=== PATIENT | female | born 1945 | race Caucasian/White ===

== ENCOUNTER 2017-11-25 10:13 | Outpatient (CLI) | payer MEDICARE, OTHER ==
[~2017-11-25] VITALS: Ht 160 cm; Wt 92.3 kg
--- NOTE | ~2017-11-25 | HEMODYNAMI ---
PATIENT:CHINO BURKETT MEDICAL RECORD: [id number] : 49 LOCATION:[facility] ADMISSION DATE: 11/25/17 Generatedon:11/25/201715:05 Patient name: CHINO BURKETT Patient #: [id number] SSN: DO B: 1945 Date of study: 11/25/2017 Page: Of Hemodynamic Procedure Report Patient Data Patient Demographics Procedure consent was obtained First Name: CHINO Gender: Female Last Name: MADELAINE : 1945 [facility] Initial: MARC Age: 72 year(s) Patient #: [id number] Race: Additional ID: [id number] Contact details [address]: [address] [place] [address] State: [place] City: [place] Zip code: [address] Past Medical History Allergies Allergen Reaction Date Comments Reported Sulfa drugs 11/25/2017 Statins 11/25/2017 Codeine 11/25/2017 Codeine 11/25/2017 Statins 11/25/2017 Sulfa drugs 11/25/2017 Codeine 11/25/2017 Admission Admission Data Admission Date: 11/25/2017 Admission Time: 10:13 Lab Results Lab Result Date: 11/25/2017 Lab Result Time: 0:00 Biochemistry Name Units Result Min Max BUN mg/dl 10 --(-*--)-- 7 18 Creatinine mg/dl 0.8 --(-*--)-- 0.6 1.3 Procedure Procedure Types Cath Procedure Diagnostic Procedure LHC LHC w/Coronaries Procedure Description Procedure Date Procedure Date: 11/25/2017 Procedure Start Time: 14:48 Procedure End Time: 15:05 Procedure Staff Name Function Cortez Chilel MD Performing Physician Jerardo Kincaid RT Monitor Boris Raza RN Nurse Nusrat Turner RT Scrub Procedure Data Cath Procedure Fluoroscopy Diagnostic fluoroscopy Total fluoroscopy Time: 2 time: 2 min min Diagnostic fluoroscopy Total fluoroscopy dose: 586 dose: 586 mGy mGy Contrast Material Contrast Material Type Amount (ml) Isovue 300 62 Entry Location Entry Primary Successful Side Size Upsize Upsize Entry Closure Monique ccessful Closure Location (Fr) 1 (Fr) 2 (Fr) Remarks Device Remarks Radial Right 6 Fr Mechanical artery Short Compression Estimated blood loss: 10 ml Diagnostic catheters Device Type Used For End Catheter Placement DIAGNOSTIC [place] 110cm 5 Procedure Fr catheter ([id number]) Procedure Medications Medication Administration Route Dosage Oxygen etCO2 Nasal cannula 2 l/min Heparin Flush Bag added to field 2 bags (1000units/500ml NS) 0.9% NaCl I.V. 100 ml/hr Radial Cocktail added to field 1 syringe (Verapomil 2mg/Nitro 400mcg/Heparin 1500units) Fentanyl I.V. 50 mcg Versed I.V. 1 mg Fentanyl I.V. 50 mcg Versed I.V. 1 mg Radial Cocktail I.A. 1 syringe (Verapomil 2mg/Nitro 400mcg/Heparin 1500units) Hemodynamics Rest Heart Rate: 76 (bpm) Pressure Samples Time Site Value (mmHg) Purpose Heart Use Rate(bpm) 14:50 LV 157/-2,10 Snapshot 82 14:51 AO 152/68(108) Pullback 80 14:51 LV 148/2,8 Pullback 80 Gradients Valve Time Site 1 Site 2 Mean SEP/DFP Peak To Heart Use (mmHg) (sec/min) Peak Rate (mmHg) (bpm) Aortic 14:51 LV AO 0 8 0 80 148/2,8 152/68(108) Calculations Valve P-P Mean Valve Index Valve Source Name Gradient Area Flow (cm2) Aortic 0 0 0 0 Snapshots Pre Cath Intra NCS Post Cath Vital Signs Time Heart Resp SPO2 etCO2 NIBP (mmHg) Rhythm Pain Sedation Rate (ipm) (%) (mmHg) Status Level (bpm) 14:36:12 76 16 100 32.2 166/83(126) NSR 0 (11) 10(A) , No pain 14:41:09 66 16 99 31.4 155/69(110) NSR 0 (11) 10(A) , No pain 14:46:04 68 15 95 0 143/80(116) NSR 0 (11) 10(A) , No pain 14:50:55 120 16 98 0 140/72(106) NSR 0 (11) 9(A) , No pain 14:55:46 88 16 98 29.9 144/73(106) NSR 0 (11) 9(A) , No pain 15:00:37 86 17 98 36.7 155/69(117) NSR 0 (11) 9(A) , No pain 15:04:18 83 16 95 37.4 163/81(119) NSR 0 (11) 9(A) , No pain Medications Time Medication Route Dose Verified Delivered Reason Notes Effectiveness by by 14:41:27 Oxygen etCO2 2 l/min Cortez Boris Per Nasal Getachew Raza RN physician cannula 14:41:37 Heparin Flush added 2 bags Cortez Boris used for Bag to Getachew Raza RN procedure (1000units/500ml field NS) 14:41:47 0.9% NaCl I.V. 100 Cortez Boris Per ml/hr Getachew Raza RN physician 14:42:05 Radial Cocktail added 1 Cortez Boris used for (Verapomil to syringe Getachew Raza RN procedure 2mg/Nitro field 400mcg/Heparin 1500units) 14:45:56 Fentanyl I.V. 50 mcg Cortez Boris for sedation Getachew Raza RN 14:46:03 Versed I.V. 1 mg Cortez Boris for sedation Getachew Raza RN 14:50:06 Radial Cocktail I.A. 1 Cortez Boris for (Verapomil syringe Getachew Raza RN vasodilation 2mg/Nitro 400mcg/Heparin 1500units) 14:50:46 Fentanyl I.V. 50 mcg Cortez Boris for sedation Getachew Raza RN 14:50:49 Versed I.V. 1 mg Cortez Boris for sedation Getachew Raza RN Procedure Log Time Note 14:22:23 Informed consent obtained and on chart 14:22:26 Diagnostic Cath Status : Elective 14:28:05 Time tracking: Regular hours (M-F 7:00 - 5:00) 14:28:13 Plan of Care:Hemodynamics will remain stable., Cardiac rhythm will remain stable., Comfort level will be maintained., Respiratory function will remain adequate., Patient/ family verbilizes understanding of procedure., Procedure tolerated without complication., Recovers from procedure without complications.. 14:28:21 Patient received from Pre/Post Procedure Room to [facility] 1 Alert and oriented. Tansferred to table in Supine position. 14:28:23 Warm blankets applied, and sabine hugger turned on for patient comfort. 14:28:24 Correct patient and procedure confirmed by team. 14:35:04 Vital chart was started 14:40:30 Baseline sample Acquired. 14:40:37 Rhythm: sinus rhythm 14:40:39 Full Disclosure recording started 14:40:51 H&P Date Dictated: 11/13/2017 Within 30 days and on chart., H&P Addendum completed by physician on day of procedure. (MUST COMPLETE FOR ALL OUTPATIENTS). 14:40:53 Pre-procedure instructions explained to patient. 14:40:53 Pre-op teaching completed and patient verbalized understanding. 14:40:59 Family in patients room. 14:41:01 Patient NPO since Breakfast. 14:41:18 Patient allergic to Sulfa drugs 14:41:26 Patient allergic to Statins 14:41:27 Oxygen 2 l/min etCO2 Nasal cannula was administered by Boris Raza RN; Per physician; 14:41:32 Patient allergic to Codeine 14:41:37 Heparin Flush Bag (1000units/500ml NS) 2 bags added to field was administered by Boris Raza RN; used for procedure; 14:41:47 0.9% NaCl 100 ml/hr I.V. was administered by Boris Raza RN; Per physician; 14:42:02 Patient allergic to Codeine 14:42:05 Radial Cocktail (Verapomil 2mg/Nitro 400mcg/Heparin 1500units) 1 syringe added to field was administered by Boris Raza RN; used for procedure; 14:42:12 Patient allergic to Statins 14:42:19 Patient allergic to Sulfa drugs 14:42:33 Patient allergic to Codeine 14:42:40 Is the patient allergic to Iodine/contrast media? No. 14:42:48 Is patient on blood thinner?Yes 14:42:52 ACC The patient was administered the following blood thiners within the last 24 hours: ACCPlavix 14:42:55 Patient diabetic? Yes. 14:42:56 If diabetic: On Metformin? No 14:43:01 Patient not . Patient is over age 55. 14:43:02 ----Pre-sedation anethsthesia assessment.---- 14:43:05 Previous problem with sedation/anesthesia? No ? 14:43:07 Snore? No 14:43:09 Sleep apnea? No 14:43:21 Deviated septum? No 14:43:22 Opens mouth fully? Yes 14:43:23 Sticks out tongue? Yes 14:43:26 Airway obstruction? No ? 14:43:29 Dentures? No ? 14:43:38 Patient pain scale 0/10 ?. 14:43:51 IV patent on arrival in left wrist with 0.9% NaCl at [facility]. 14:45:19 Lab Result : Creatinine 0.8 mg/dl 14:45:19 Lab Result : BUN 10 mg/dl 14:45:24 Lab results completed and on chart. 14:45:31 Right Radial & Right Groin area was prepped with chlora-prep and draped in sterile fashion 14:45:33 Alarms reviewed by R. N. 14:45:34 Sharps counted by scrub and verified by R.N. 14:45:35 Physician arrived 14:45:36 --------ALL STOP TIME OUT------ 14:45:38 Final Timeout: patient, procedure, and site verified with staff and physician. All members of the team are in agreement. 14:45:41 Right Radial & Right Groin site verified by team. 14:45:48 Physical assessment completed. ASA score P 2 - A patient with mild systemic disease as per Cortez Chilel MD. 14:45:55 Sedation plan: IV Moderate Sedation Medication:Versed, Fentanyl 14:45:56 Fentanyl 50 mcg I.V. was administered by Boris Raza RN; for sedation; 14:46:03 Versed 1 mg I.V. was administered by Boris Raza RN; for sedation; 14:47:43 Use device set Radial Dx or PCI 14:47:44 ACIST Syringe (28069) opened to sterile field. 14:47:45 Medline Cath Pack ([id number]) opened to sterile field. 14:47:46 Bag Decanter (2002S) opened to sterile field. 14:47:47 DIAGNOSTIC WIRE .035 260cm J wire (767492) opened to sterile field. 14:47:48 ACIST Hand Control (26122) opened to sterile field. 14:47:48 ACIST Manifold (05419) opened to sterile field. 14:47:49 Tegaderm 4 x 4 (1626W) opened to sterile field. 14:47:50 MBrace Wrist Support ([id number]) opened to sterile field. 14:47:55 SHEATH 6Fr Prelude Radial ([id number]) opened to sterile field. 14:48:02 Procedure started. 14:48:19 Local anesthetic to right radial artery with Lidocaine 2% by Cortez Chilel MD.INITIAL ACCESS ONLY 14:49:06 A 6 Fr Short sheath was inserted into the Right Radial artery 14:49:43 A DIAGNOSTIC [place] 110cm 5 Fr catheter (146865) was advanced over the wire and used for Procedure. 14:50:06 Radial Cocktail (Verapomil 2mg/Nitro 400mcg/Heparin 1500units) 1 syringe I.A. was administered by Boris Raza RN; for vasodilation; 14:50:44 LV hemodynamics recorded. 14:50:46 Fentanyl 50 mcg I.V. was administered by Boris Raza RN; for sedation; 14:50:47 LV gram done using RECIO 14:50:49 Versed 1 mg I.V. was administered by Boris Raza RN; for sedation; 14:50:57 EF : 55 % 14:51:56 LCA angiography performed. 14:54:23 RCA angiography performed. 14:57:59 Catheter removed. 14:58:35 CABG CONSULT 14:59:17 TR BAND Standard ([id number]) opened to sterile field. 14:59:51 Sheath removed intact; hemostasis achieved with Mechanical Compression to the Right Radial artery. 15:00:35 Procedure ended.(Physican Out) 15:00:52 Fluoroscopy time 02.00 minutes. 15:01:00 Fluoroscopy dose: 586 mGy 15:01:00 Flurop Dose total: 586 15:01:05 Contrast amount:Isovue 300 62ml. 15:01:07 Sharps counted by scrub and verified by R.N. 15:01:39 TR band inflated with 13cc of air. 15:01:41 Insertion/operative site no bleeding no hematoma. 15:01:51 Post right radial artery:stable 15:02:21 Post-procedure physical assessment completed. ASA score P 2 - A patient with mild systemic disease as per Cortez Chilel MD. 15:02:32 Post procedure rhythm: sinus rhythm 15:02:40 Estimated blood loss: 10 ml 15:02:48 Post procedure instruction explained to patient.Patient verbalizes understanding. 15:02:50 Patient needs reinforcement of post procedure teaching. 15:02:52 Procedure and supply charges have been captured, reviewed, submitted and are correct. 15:05:19 Vital chart was stopped 15:05:20 See physician's report for complete and final results. 15:05:22 Report given to Pre/Post Procedure Room. 15:05:25 Patient transfered to Pre/Post Procedure Room with Stretcher. 15:05:28 Procedure ended. 15:05:28 Full Disclosure recording stopped 15:05:32 End room use (Document Last) Device Usage Item Name Manufacture Quantity Catalog Number Hospital Part Current M inimal Lot# / Charge Number Stock Stock Serial# Code ACIST Syringe Acist 1 99038 [id number] 368932 650028 2 0 (10102) [employer] Inc Medline Cath Cardinal 1 [id number] 975972 19014 532836 5 [facility] ([id number]) Bag Decanter Microtek 1 2001S 647084 24463 362636 5 (2001S) Medical Inc. DIAGNOSTIC WIRE St [place] 1 622188 082167 354326 317870 3 0 .035 260cm J wire (746123) ACIST Hand Acist 1 09561 239672 166767 188492 5 Control (17250) [employer] Inc ACIST Manifold Acist 1 30023 638235 134806 764199 5 (42652) [employer] Inc Tegaderm 4 x 4 3M 1 1626W 373914 350804 617151 5 (1626W) MBrace Wrist Advanced 1 140-0250-00 951070 30939 612116 5 Support Vascular ([id number]) Dynamics SHEATH 6Fr Merit 1 [id number] 234812 915723 994525 5 Prelude Radial Medical ([id number]) DIAGNOSTIC Terumo 1 40-4216 170685 015974 669056 5 [place] 110cm 5 Fr catheter (387110) TR BAND Terumo 1 [id number] 934309 057759 280145 4 0 Standard ([id number]) Signature Audit [place] Stage Time Signature Unsigned Intra-Procedure 11/25/2017 Jerardo Kincaid 3:05:50 PM RT(R) (CV) Signatures Monitor : Jerardo Kincaid RT Signature : Date : Time : [place] [address] [place] [address]
[2017-11-25] MEDS ORDERED: TRULICITY1.5 MG/0.5 SC (10:41)
[2017-11-25] MEDS ORDERED: PLAVIX75 MG PO (10:41)
[2017-11-25] MEDS ORDERED: TOPROL XL50 MG PO (10:41)
[2017-11-25] MEDS ORDERED: CLARITIN 10 MG10 MG PO (10:42)
[2017-11-25] MEDS ORDERED: PEPCID AC20 MG PO (10:42)
[2017-11-25] MEDS ORDERED: PRINIVIL20 MG PO (10:42)
[2017-11-25] MEDS ORDERED: BAYER CHEWABLE81 MG PO (10:43)
[2017-11-25 10:52] VITALS: BP 151/61; BMI 36.0
[2017-11-25 11:22] LABS: BASOPHILS 0.4 % (0-2); EOSINOPHILS 1.3 % (0-7); HEMATOCRIT 39.5 % (42.0-54.0); HEMOGLOBIN 12.7 g/dL (13.5-17.5); IMMATURE GRANULOCYTES 0.2 % (0-5); MCH 25.9 pg (26.0-34.0); MCHC 32.2 g/dL (31.0-37.0); MCV 80.6 fL (80.0-100.0); MEAN PLATELET VOLUME 9.8 fL (7.4-10.4); MONOCYTES 8.1 % (2-11); PLATELET COUNT 230 10x3/uL (130-400); WBC 9.3 10x3/uL (4.8-10.8)
[2017-11-25 11:26] LABS: CALC OSMOLALITY 267 mosm/kg (275-300); CALCIUM 9.6 mg/dL (8.5-10.1); CARBON DIOXIDE 23.7 mmol/L (21.0-32.0); CHLORIDE - SERUM 101 mmol/L (98-107); CREATININE - SERUM 0.8 mg/dL (0.6-1.3); GLUCOSE 125 mg/dL (74-106); SODIUM 134 mmol/L (136-145); UREA NITROGEN 10 mg/dL (7-18); eGFR NON AFRICAN AMERICAN > 90 mL/min (90-120)
[2017-11-25 18:23] VITALS: Ht 160 cm; Wt 92.3 kg
[2017-11-30] MEDS ORDERED: PLECANATIDE PO (12:51)
== END 2017-11-25 17:20 | disposition home or self-care (01) ==
LOC: D.CATH 10:13 → EDSEX 10:13 → D.CATH 13:30
PROVIDERS: Internal Medicine Cardiovascular Disease
DX: I25.10 Atherosclerotic heart disease of native coronary artery without angina pectoris (principal); I10 Essential (primary) hypertension; R09.89 Other specified symptoms and signs involving the circulatory and respiratory systems; E11.9 Type 2 diabetes mellitus without complications; Z01.812 Encounter for preprocedural laboratory examination

== ENCOUNTER 2017-11-30 13:30 | Inpatient (IN) | payer MEDICARE, OTHER ==
[~2017-11-30] VITALS: Ht 160 cm; Wt 92.0 kg
--- NOTE | ~2017-11-30 | OP ---
PATIENT NAME: CHINO BURKETT MEDICAL RECORD: [id number] :49 LOCATION:[facility] ADMISSION DATE:12/03/17 SURGEON: CHAPITO BLUM MD DATE OF OPERATION: 12/03/2017 SURGEON: Chapito Blum MD TEXTILE COATING MACHINE OPERATOR: BONNIE Peacock MD and JD Gonzalez PREOPERATIVE DIAGNOSIS: Coronary artery disease. PROCEDURE PERFORMED: Coronary artery bypass graft times 3 (left internal mammary artery to LAD, reverse saphenous vein graft from aorta to first obtuse marginal, aorta to second obtuse marginal). POSTOPERATIVE DIAGNOSIS: Coronary artery disease. ANESTHESIA: General endotracheal anesthesia. ESTIMATED BLOOD LOSS: Total cardiopulmonary bypass with Cell Saver re-transfusion, but no bank blood transfusion. COMPLICATIONS: None. SPECIMENS: 1. Left internal mammary artery lymph node. 2. Mediastinal lymph node. CONDITION: Stable. DISPOSITION: CV ICU. OPERATIVE FINDINGS: 1. Transesophageal echocardiography after induction of anesthesia revealed 2+ mitral regurgitation without significant left atrial dilation, this reduced to about 1+ prior to beginning surgery and on exiting, cardiopulmonary bypass was only trace. 2. Left internal mammary artery was a good conduit, LAD was a moderately diseased 2.0 mm vessel. 3. Larger caliber portion of greater saphenous vein from the thigh was used for the graft to the first obtuse marginal which was the larger of the 2 vessels, 2.0 mm with moderate disease. 4. Second obtuse marginal 1.5 mm vessel with moderate disease. 5. Right coronary artery read as 60% looked less significantly stenosed and therefore was not grafted. OPERATIVE INDICATION: Coronary artery disease, previous history of percutaneous coronary intervention. OPERATIVE SUMMARY IN DETAIL: The patient was brought to the operating suite. General anesthesia was obtained, the patient was prepped and draped. Greater saphenous vein was harvested in the right lower extremity. Side branches were clipped or tied. The vessel was ligated proximally and distally removed. The leg was closed in 2 layers at the conclusion of the case and wrapped with an elastic wrap. OPERATIVE REPORT [id number] CHINO BURKETT Median sternotomy incision was made. Subcutaneous tissue divided with electrocautery. Sternum was divided with a saw. Left hemisternum was elevated. The left pleural cavity was entered. Left internal mammary artery and vein was taken down as a pedicle graft. Sternal retractor was placed. Pericardium was opened. Heparin was given. The aorta was cannulated. Dual stage venous cannula was inserted. The internal mammary artery was clipped distally and made ready for anastomosis. The patient was placed on cardiopulmonary bypass. The sites for distal anastomosis were selected. The antegrade cardioplegia needle was inserted. The patient was cooled. Crossclamp was placed. Cardioplegia was given antegrade including down the completed vein grafts at a 15-minute interval. Distal anastomosis was performed in a standard technique and proximal anastomosis in a single crossclamp technique. Aortic root de-aired with the patient in Trendelenburg position and the crossclamp removed, flow restored. Proximal anastomoses tied down and vein grafts de-aired. The patient resumed to a spontaneous sinus rhythm, fully rewarmed with cardiopulmonary bypass and was stable. The patient was decannulated. The cannula sites were oversewn. Protamine was given. Drains were placed in the mediastinum, left pleural cavity and a ventricular pacing wire was placed. Pericardial fat was loosely reapproximated. Left chest was evacuated and irrigated. The internal mammary artery site was ensured to be hemostatic. Sternum was closed with wires. Fascia was closed. Subcutaneous tissue was closed. Skin was closed. Dermabond was placed. The needle and sponge counts were placed and the patient was taken to the ICU in stable condition. TRANSINT:[id number] Voice Confirmation ID: [id number] DOCUMENT ID: [id number] CHAPITO BLUM MD at 1109 CC: BEATRICE DUDLEY M.D. [id number] DICTATION DATE: 12/03/17 1205 TACTICAL/MOBILE WATCH OFFICER: 12/03/17 1635 ADM IN [facility] [address] [id number]
--- NOTE | ~2017-11-30 | TEE ---
PATIENT:CHINO BURKETT MEDICAL RECORD: [id number] LOCATION:[place] [address] AGE OF PATIENT: 72 ADMISSION DATE: 12/03/17 SEX: F REFERRING PHYSICIAN: INTERPRETING PHYSICIAN: CHAVA MEJIA MD TRANSESOPHAGEAL ECHOCARDIOGRAM Date: 12/03/17 PARKER CHARGE Y INDICATIONS: CABG PREMEDICATIONS: PATIENT'S RESPONSE PROCEDURE DOPPLER MEASUREMENTS: LVIT LA PA RA LVOT RVOT Asc. Ao AV Gradient Peak AV Mean AV Area MV Gradient Peak MV Mean MV Area INTERPRETATION: Doppler: 2-D: EF 65%+ COLOR FLOW DOPPLER MILD MR NORMAL SALINE STUDY: MISCELLANOUS: DIAGNOSIS: PLAN: Legislative Aide:Aj Chilel [employer] Drm Consultant: Aj JAVIER COMMENTS: DATE OF SERVICE: 12/03/2017 Transesophageal echo evaluation of valvular structures during bypass surgery. FINDINGS: 1. Left ventricular chamber size is within normal limits. Left ventricular function is normal. Overall ejection fraction estimated at 65%. 2. Left atrium, right atrium, right ventricle chamber sizes are within normal limits. TRANSESOPHAGEAL ECHOCARDIOGRAM REPORT [id number] CHINO BURKETT 3. Valvular structures have normal structure and motion. 4. Doppler interrogation only reveals mild mitral regurgitation, no other valvular insufficiency or stenosis. 5. No evidence of pericardial effusion or left ventricular thrombus. TRANSINT:[id number] Voice Confirmation ID: [id number] DOCUMENT ID: [id number] at 1445 CC: [id number] DICTATION DATE: 12/03/17 1131 CABLE CUTTER AND SWAGER: 12/04/17 0208 ADM IN [place] [address] [place] [address]
[2017-11-30 12:46] LABS: BASOPHILS 0.3 % (0-2); EOSINOPHILS 1.4 % (0-7); HEMATOCRIT 38.9 % (36.0-48.0); HEMOGLOBIN 12.6 g/dL (12-16); IMMATURE GRANULOCYTES 0.3 % (0-5); LYMPHOCYTES 21.3 % (15-50); MCH 26.1 pg (26.0-34.0); MCHC 32.4 g/dL (31.0-37.0); MCV 80.7 fL (80.0-100.0); MEAN PLATELET VOLUME 10.4 fL (7.4-10.4); MONOCYTES 6.4 % (2-11); NEUTROPHILS 70.3 % (40-80); RBC 4.82 10x6/uL (4.00-5.40); RDW 14.1 % (11.5-14.5)
[2017-11-30 12:47] LABS: PLATELET COUNT 319 10x3/uL (130-400)
[2017-11-30 12:53] LABS: APPEARANCE HAZY (CLEAR); BACTERIA MODERATE /hpf (NONE SEEN); BILIRUBIN NEGATIVE (NEGATIVE); COLOR DK YELLOW (YELLOW); GLUCOSE NEGATIVE (NEGATIVE); KETONE NEGATIVE (NEGATIVE); MUCUS >1+ /lpf (NONE SEEN); NITRITE NEGATIVE (NEGATIVE); PROTEIN TRACE mg/dL (NEGATIVE); RED CELLS - URINE 0-5 /hpf (0-5); SPECIFIC GRAVITY 1.025 (1.005-1.020); UROBILINOGEN NORMAL (NORMAL); WHITE CELLS - URINE 25-50 /hpf (0-5)
[2017-11-30 12:54] LABS: APTT 29.8 SECONDS (22.8-39.4); INR 1.07 (0.85-1.17); PROTIME 13.5 SECONDS (11.6-15.0)
[2017-11-30 13:14] LABS: ALBUMIN 3.3 g/dL (3.4-5.0); ANION GAP 14.2 mmol/L (8-16); BILIRUBIN - TOTAL 0.3 mg/dL (0.2-1.3); CALCIUM 9.4 mg/dL (8.5-10.1); CARBON DIOXIDE 24.1 mmol/L (21.0-32.0); CREATININE - SERUM 1.1 mg/dL (0.6-1.3); POTASSIUM - SERUM 4.3 mmol/L (3.5-5.1); PROTEIN - SERUM 7.8 g/dL (6.4-8.2); T4 THYROXIN - FREE 0.9 ng/dL (0.76-1.46); THYROID STIMULATING HORMONE 2.4 uIU/mL (0.36-3.74); URIC ACID 5.6 mg/dL (2.6-7.2)
[~2017-11-30 13:30] MED LIST: BAYER CHEWABLE81 MG PO; CLARITIN 10 MG10 MG PO; PEPCID AC20 MG PO; PLAVIX75 MG PO; PLECANATIDE PO; PRINIVIL20 MG PO; TOPROL XL50 MG PO; TRULICITY1.5 MG/0.5 SC
[2017-11-30] MEDS ORDERED: TRULANCE3 MG PO (13:51)
[2017-12-03] VITALS (46 sets, daily range): BP systolic 104–186; BP diastolic 41–88; BMI 35.5
[2017-12-03 07:37] LABS: PLT FUNCT.(P2Y12) PLAVIX 288 PRU (194-418)
[2017-12-03 11:56] LABS: HEMATOCRIT 28.2 % (36.0-48.0); MCH 25.4 pg (26.0-34.0); MCHC 31.9 g/dL (31.0-37.0); MCV 79.7 fL (80.0-100.0); MEAN PLATELET VOLUME 9.1 fL (7.4-10.4); RBC 3.54 10x6/uL (4.00-5.40); RDW 13.9 % (11.5-14.5); WBC 18.3 10x3/uL (4.8-10.8)
[2017-12-03 12:02] LABS: CREATININE - SERUM 0.8 mg/dL (0.6-1.3); UREA NITROGEN 9 mg/dL (7-18)
[2017-12-03 12:03] LABS: APTT 31.3 SECONDS (22.8-39.4); CALC OSMOLALITY 289 mosm/kg (275-300); CALCIUM 7.1 mg/dL (8.5-10.1); CARBON DIOXIDE 24.3 mmol/L (21.0-32.0); CHLORIDE - SERUM 110 mmol/L (98-107); INR 1.45 (0.85-1.17); POTASSIUM - SERUM 3.7 mmol/L (3.5-5.1); PROTIME 17.2 SECONDS (11.6-15.0); SODIUM 143 mmol/L (136-145); eGFR NON AFRICAN AMERICAN 75 mL/min (90-120)
[2017-12-03 12:14] LABS: GLUCOSE 213 mg/dL (74-106)
[2017-12-04] VITALS (49 sets, daily range): BP systolic 99–172; BP diastolic 40–65; Ht 160 cm; Wt 92.0 kg
[2017-12-04 04:36] LABS: HEMATOCRIT 30.1 % (36.0-48.0); HEMOGLOBIN 9.6 g/dL (12-16); MCH 25.7 pg (26.0-34.0); MCHC 31.9 g/dL (31.0-37.0); MCV 80.7 fL (80.0-100.0); MEAN PLATELET VOLUME 9.3 fL (7.4-10.4); RBC 3.73 10x6/uL (4.00-5.40); RDW 14.1 % (11.5-14.5); WBC 15.1 10x3/uL (4.8-10.8)
[2017-12-04 04:53] LABS: ALBUMIN 2.5 g/dL (3.4-5.0); ANION GAP 14.1 mmol/L (8-16); BILIRUBIN - TOTAL 0.35 mg/dL (0.2-1.3); CALCIUM 7.4 mg/dL (8.5-10.1); CARBON DIOXIDE 24.8 mmol/L (21.0-32.0); CREATININE - SERUM 0.9 mg/dL (0.6-1.3); POTASSIUM - SERUM 3.9 mmol/L (3.5-5.1); PROTEIN - SERUM 5.2 g/dL (6.4-8.2)
[2017-12-05] VITALS (25 sets, daily range): BP systolic 105–158; BP diastolic 35–83
[2017-12-05 06:23] LABS: HEMATOCRIT 28.4 % (36.0-48.0); HEMOGLOBIN 8.7 g/dL (12-16); MCH 25.4 pg (26.0-34.0); MCHC 30.6 g/dL (31.0-37.0); MCV 82.8 fL (80.0-100.0); MEAN PLATELET VOLUME 9.4 fL (7.4-10.4); RBC 3.43 10x6/uL (4.00-5.40); RDW 14.6 % (11.5-14.5); WBC 15.6 10x3/uL (4.8-10.8)
[2017-12-05 06:41] LABS: ALBUMIN 2.4 g/dL (3.4-5.0); ANION GAP 8.2 mmol/L (8-16); BILIRUBIN - TOTAL 0.3 mg/dL (0.2-1.3); CALCIUM 7.9 mg/dL (8.5-10.1); CARBON DIOXIDE 30.1 mmol/L (21.0-32.0); CREATININE - SERUM 0.9 mg/dL (0.6-1.3); POTASSIUM - SERUM 4.3 mmol/L (3.5-5.1); PROTEIN - SERUM 5.4 g/dL (6.4-8.2)
[2017-12-06] VITALS (26 sets, daily range): BP systolic 112–153; BP diastolic 45–62
[2017-12-06 06:19] LABS: HEMATOCRIT 28.4 % (36.0-48.0); HEMOGLOBIN 8.7 g/dL (12-16); MCH 25.6 pg (26.0-34.0); MCHC 30.6 g/dL (31.0-37.0); MCV 83.5 fL (80.0-100.0); MEAN PLATELET VOLUME 9.4 fL (7.4-10.4); RBC 3.4 10x6/uL (4.00-5.40); RDW 14.7 % (11.5-14.5)
[2017-12-06 06:53] LABS: ALBUMIN 2.1 g/dL (3.4-5.0); ALKALINE PHOSPHATASE 43 U/L (46-116); ALT (SGPT) 11 U/L (10-68); CALC OSMOLALITY 281 mosm/kg (275-300); CALCIUM 7.8 mg/dL (8.5-10.1); CARBON DIOXIDE 29.7 mmol/L (21.0-32.0); CHLORIDE - SERUM 104 mmol/L (98-107); CREATININE - SERUM 0.7 mg/dL (0.6-1.3); GLUCOSE 156 mg/dL (74-106); PROTEIN - SERUM 5.4 g/dL (6.4-8.2); SODIUM 140 mmol/L (136-145); UREA NITROGEN 13 mg/dL (7-18); eGFR NON AFRICAN AMERICAN 88 mL/min (90-120)
[2017-12-07] VITALS (24 sets, daily range): BP systolic 92–156; BP diastolic 44–65
[2017-12-07 06:12] LABS: HEMATOCRIT 24.7 % (36.0-48.0); HEMOGLOBIN 7.7 g/dL (12-16); MCH 25.6 pg (26.0-34.0); MCHC 31.2 g/dL (31.0-37.0); MCV 82.1 fL (80.0-100.0); MEAN PLATELET VOLUME 9.7 fL (7.4-10.4); RBC 3.01 10x6/uL (4.00-5.40); RDW 14.7 % (11.5-14.5); WBC 12.4 10x3/uL (4.8-10.8)
[2017-12-07 06:33] LABS: ALBUMIN 1.9 g/dL (3.4-5.0); BILIRUBIN - TOTAL 0.3 mg/dL (0.2-1.3); CALCIUM 7.7 mg/dL (8.5-10.1); PROTEIN - SERUM 5.3 g/dL (6.4-8.2)
[2017-12-07 06:34] LABS: CREATININE - SERUM 0.9 mg/dL (0.6-1.3)
[2017-12-08] VITALS (21 sets, daily range): BP systolic 107–164; BP diastolic 43–66
[2017-12-08 06:17] LABS: HEMATOCRIT 26.1 % (36.0-48.0); HEMOGLOBIN 8.2 g/dL (12-16); MCH 25.8 pg (26.0-34.0); MCHC 31.4 g/dL (31.0-37.0); MCV 82.1 fL (80.0-100.0); MEAN PLATELET VOLUME 9.8 fL (7.4-10.4); RBC 3.18 10x6/uL (4.00-5.40); RDW 14.6 % (11.5-14.5); WBC 12.7 10x3/uL (4.8-10.8)
[2017-12-08 06:35] LABS: ALKALINE PHOSPHATASE 51 U/L (46-116); ALT (SGPT) 10 U/L (10-68); BILIRUBIN - TOTAL 0.36 mg/dL (0.2-1.3); CALC OSMOLALITY 277 mosm/kg (275-300); CARBON DIOXIDE 31.4 mmol/L (21.0-32.0); CHLORIDE - SERUM 102 mmol/L (98-107); CREATININE - SERUM 0.8 mg/dL (0.6-1.3); GLUCOSE 122 mg/dL (74-106); POTASSIUM - SERUM 3.8 mmol/L (3.5-5.1); PROTEIN - SERUM 5.7 g/dL (6.4-8.2); SODIUM 138 mmol/L (136-145); UREA NITROGEN 14 mg/dL (7-18); eGFR NON AFRICAN AMERICAN 75 mL/min (90-120)
[2017-12-09] VITALS (23 sets, daily range): BP systolic 112–157; BP diastolic 42–74
[2017-12-09 06:23] LABS: BASOPHILS 0.4 % (0-2); HEMATOCRIT 26.1 % (36.0-48.0); IMMATURE GRANULOCYTES 0.5 % (0-5); LYMPHOCYTES 24.4 % (15-50); MCHC 30.7 g/dL (31.0-37.0); MCV 81.6 fL (80.0-100.0); MEAN PLATELET VOLUME 9.5 fL (7.4-10.4); MONOCYTES 8.5 % (2-11); NEUTROPHILS 64.2 % (40-80); PLATELET COUNT 367 10x3/uL (130-400); RDW 14.8 % (11.5-14.5); WBC 11.1 10x3/uL (4.8-10.8)
[2017-12-09 06:51] LABS: ALBUMIN 1.9 g/dL (3.4-5.0); ALKALINE PHOSPHATASE 47 U/L (46-116); ALT (SGPT) 9 U/L (10-68); BILIRUBIN - TOTAL 0.28 mg/dL (0.2-1.3); CALC OSMOLALITY 277 mosm/kg (275-300); CALCIUM 8.2 mg/dL (8.5-10.1); CARBON DIOXIDE 29.8 mmol/L (21.0-32.0); CHLORIDE - SERUM 103 mmol/L (98-107); CREATININE - SERUM 0.8 mg/dL (0.6-1.3); GLUCOSE 102 mg/dL (74-106); POTASSIUM - SERUM 3.8 mmol/L (3.5-5.1); PROTEIN - SERUM 5.8 g/dL (6.4-8.2); SODIUM 139 mmol/L (136-145); UREA NITROGEN 13 mg/dL (7-18); eGFR NON AFRICAN AMERICAN 75 mL/min (90-120)
[2017-12-10] VITALS (19 sets, daily range): BP systolic 118–149; BP diastolic 46–78
[2017-12-10] MEDS ORDERED: HEMOCYTE PLUS C1 CAP PO (13:52)
[2017-12-10] MEDS ORDERED: ELIQUIS5 MG PO (13:52)
[2017-12-10] MEDS ORDERED: CORDARONE200 MG PO (13:53)
[2017-12-10] MEDS ORDERED: LOPRESSOR25 MG PO (13:54)
[2017-12-10] MEDS ORDERED: K-DUR20 MEQ PO (13:56)
[2017-12-10] MEDS ORDERED: LASIX40 MG PO (13:59)
[2017-12-10] MEDS ORDERED: PERCOCET 5-3251 TAB PO ×2 (14:00→16:50)
== END 2017-12-10 18:50 | disposition home or self-care (01) | DRG 236 ==
LOC: D.SDCHOLD 12-02 13:30 → D.CVICU 12-03 05:07 → D.SDCHOLD 12-03 05:07 → D.CVICU 12-03 09:02 → D.SDCHOLD 12-03 13:30 → D.CVICU 12-10 18:50
PROVIDERS: Thoracic Surgery (Cardiothoracic Vascular Surgery)
PROC: 021109W Bypass Coronary Artery, Two Arteries from Aorta with Autologous Venous Tissue, Open Approach (ICD-10-PCS; 2017-12-03)
PROC: 06BP0ZZ Excision of Right Saphenous Vein, Open Approach (ICD-10-PCS; 2017-12-03)
PROC: 5A1221Z Performance of Cardiac Output, Continuous (ICD-10-PCS; 2017-12-03)
PROC: B24BZZ4 Ultrasonography of Heart with Aorta, Transesophageal (ICD-10-PCS; 2017-12-03)
PROC: 02100Z9 Bypass Coronary Artery, One Artery from Left Internal Mammary, Open Approach (ICD-10-PCS; principal; 2017-12-03 07:30)
DX: I25.10 Atherosclerotic heart disease of native coronary artery without angina pectoris (principal); I48.1 Persistent atrial fibrillation; D62 Acute posthemorrhagic anemia; I34.0 Nonrheumatic mitral (valve) insufficiency; I10 Essential (primary) hypertension; E11.9 Type 2 diabetes mellitus without complications; I25.2 Old myocardial infarction; I25.82 Chronic total occlusion of coronary artery; Z95.5 Presence of coronary angioplasty implant and graft